=== PATIENT | male | born 1990 | race African-American/Black ===

== ENCOUNTER 2019-04-14 20:10 | Emergency (ER) | payer SELFPAY ==
[~2019-04-14] VITALS: Ht 182.9 cm; Wt 90.7 kg
[2019-04-14 21:24] VITALS: Ht 182.9 cm; Wt 90.7 kg
[2019-04-14 23:26] VITALS: BP 121/76
== END 2019-04-14 23:26 | disposition home or self-care (01) ==
LOC: ED 20:10
DX: S91.201A Unspecified open wound of right great toe with damage to nail, initial encounter (principal); W23.0XXA Caught, crushed, jammed, or pinched between moving objects, initial encounter; Y93.89 Activity, other specified; Y92.89 Other specified places as the place of occurrence of the external cause; Y99.8 Other external cause status